=== PATIENT | male | born 1990 | race African-American/Black ===

== ENCOUNTER 2018-05-11 09:41 | Emergency (ER) | payer BC ==
--- NOTE | 2018-05-11 10:12 | ER Document Report ---
ED Medical Screen (RME) - General Chief Complaint: Flank Pain Stated Complaint: FLANK PAIN Time Seen by Provider: 05/11/18 09:58 Notes: 27 years old male with a history of foreign syndrome surgical correction of the aorta presents today with left flank pain. Apparently he lives in [place] and get treated in the room. I could not access his [place] database for substance abuse, information appeared to be wrong. TRAVEL OUTSIDE OF THE U.S. IN LAST 30 DAYS: No - Related Data Allergies/Adverse Reactions: No Known Allergies Allergy (Verified 05/11/18 09:49) Past Medical History Renal/ Medical History: Denies: Hx Peritoneal Dialysis Past Surgical History: Reports: Hx Cardiac Surgery - thoracic aortic aneurysm repair - Immunizations Hx Diphtheria, Pertussis, Tetanus Vaccination: Yes Physical Exam - Vital signs Vitals: Temp Pulse Resp BP Pulse Ox 98.7 F 68 20 107/73 97 05/11/18 09:53 05/11/18 09:53 05/11/18 09:53 05/11/18 09:53 05/11/18 09:53 Course - Vital Signs Vital signs: Temp Pulse Resp BP Pulse Ox 98.7 F 68 20 107/73 97 05/11/18 09:53 05/11/18 09:53 05/11/18 09:53 05/11/18 09:53 05/11/18 09:53 Doctor's Discharge - Discharge Referrals: VIPUL MASTERSON MD [Primary Care Provider] - Follow up as needed
[2018-05-11 11:06] LABS: ABSOLUTE MONOCYTES (AUTO) 0.4 10^3/uL (0.1-1.4); ABSOLUTE NEUT (AUTO) 1.2 10^3/uL (1.7-8.2); BASOPHILS % (AUTO) 1.1 % (0-2); EOSINOPHILS % (AUTO) 0.1 % (0-6); HEMATOCRIT 42.2 % (37.9-51.0); HEMOGLOBIN 14.1 g/dL (13.5-17.0); LYMPHOCYTES % (AUTO) 53.9 % (13-45); MEAN CORPUSCULAR HEMOGLOBIN 28.4 pg (27.0-33.4); MEAN CORPUSCULAR HGB CONC 33.4 g/dL (32.0-36.0); MEAN CORPUSCULAR VOLUME 85 fl (80-97); MONOCYTES % (AUTO) 11.4 % (3-13); PLATELET COUNT 138 10^3/uL (150-450); RED BLOOD COUNT 4.96 10^6/uL (4.35-5.55); RED CELL DISTRIBUTION WIDTH 14.4 % (11.5-14.0); SEGMENTED NEUTROPHILS % (AUTO) 33.5 % (42-78); TOTAL CELLS COUNTED % (AUTO) 100 %; WHITE BLOOD COUNT 3.6 10^3/uL (4.0-10.5)
--- NOTE | 2018-05-11 11:07 | RADIOLOGY REPORT (SQ) ---
EXAM DESCRIPTION: KUB/ABDOMEN (SINGLE VIEW) COMPLETED DATE/TIME: 05/11/2018 10:55 am REASON FOR STUDY: flank pain COMPARISON: Two-view chest 08/26/2013 NUMBER OF VIEWS: One view. TECHNIQUE: Supine radiographic image of the abdomen acquired. LIMITATIONS: None. FINDINGS: BOWEL GAS PATTERN: Normal bowel gas pattern. No dilated loops. Moderate stool in the rect osigmoid CALCIFICATIONS: No suspicious calcifications. SOFT TISSUES: No gross mass or suggestion of organomegaly. HARDWARE: Surgical clips in the left upper quadrant BONES: No acute fracture. No worrisome bone lesions. OTHER: No other significant finding. IMPRESSION: Moderate stool in the rectosigmoid. Otherwise unremarkable bowel gas pattern. TECHNICAL DOCUMENTATION: JOB ID: [id number] [employer]- All Rights Reserved Reading location - IP/workstation name: [email or web address]
[2018-05-11 11:11] LABS: APPEARANCE,URINE CLEAR; BILIRUBIN,URINE NEGATIVE (NEGATIVE); COLOR,URINE YELLOW; GLUCOSE, URINE NEGATIVE (NEGATIVE); KETONES,URINE NEGATIVE (NEGATIVE); LEUKOCYTE ESTERASE,URINE NEGATIVE (NEGATIVE); NITRITE,URINE NEGATIVE (NEGATIVE); PROTEIN,URINE NEGATIVE (NEGATIVE); URINE SPECIFIC GRAVITY 1.016
[2018-05-11 11:25] LABS: ALANINE AMINOTRANSFERASE 18 U/L (21-72); ALBUMIN 4.6 g/dL (3.5-5.0); ALKALINE PHOSPHATASE 69 U/L (38-126); ANION GAP 12 (5-19); ASPARTATE AMINO TRANSFERASE 32 U/L (17-59); BILIRUBIN,DIRECT 0.2 mg/dL (0.0-0.4); BILIRUBIN,TOTAL 0.6 mg/dL (0.2-1.3); BLOOD UREA NITROGEN 11 mg/dL (7-20); CALCIUM 9.3 mg/dL (8.4-10.2); CARBON DIOXIDE 30 mmol/L (22-30); CHLORIDE 102 mmol/L (98-107); GLUCOSE 102 mg/dL (75-110); POTASSIUM 4.3 mmol/L (3.6-5.0); TOTAL PROTEIN 8.4 g/dL (6.3-8.2)
[2018-05-11] MEDS ORDERED: KETOROLAC TROMETHAMINE INJ/PF 30 MG/1 ML SDV IV ONE (12:02)
[2018-05-11] MEDS ORDERED: ONDANSETRON HCL INJ/PF 4 MG/2 ML SDV IV ONE (12:03)
--- NOTE | 2018-05-11 12:13 | ER Document Report ---
ED General - General Chief Complaint: Flank Pain Stated Complaint: FLANK PAIN Time Seen by Provider: 05/11/18 09:58 Notes: Patient is a 27-year-old male presenting to the emergency department complaining of left flank pain for the last 3 days. Patient is also stating pain radiates around to his left lower quadrant and into his left groin. Patient denies dysuria, testicular pain or swelling. Patient does admit to vomiting, denies diarrhea. Patient denies any penile discharge. Patient denies any chest pain or shortness of breath. Past medical history: Marfan's, heart murmur Medications: Losartan, metoprolol Allergies: None Surgical history: Aortic aneurysm repair x3 Patient does admit to cigarette smoking, marijuana use, but denies EtOH use. TRAVEL OUTSIDE OF THE U.S. IN LAST 30 DAYS: No - Related Data Allergies/Adverse Reactions: No Known Allergies Allergy (Verified 05/11/18 09:49) Past Medical History - General Information source: Patient - Social History Smoking Status: Current Every Day Smoker Frequency of alcohol use: None Drug Abuse: Marijuana Lives with: Family Family History: Reviewed & Not Pertinent Patient has suicidal ideation: No Patient has homicidal ideation: No Renal/ Medical History: Denies: Hx Peritoneal Dialysis Past Surgical History: Reports: Hx Cardiac Surgery - thoracic aortic aneurysm repair - Immunizations Hx Diphtheria, Pertussis, Tetanus Vaccination: Yes Review of Systems - Review of Systems Constitutional: denies: Fever, Weakness EENT: No symptoms reported Cardiovascular: See HPI Respiratory: denies: Cough, Short of breath Gastrointestinal: See HPI Genitourinary: See HPI Male Genitourinary: No symptoms reported Musculoskeletal: See HPI Skin: No symptoms reported Hematologic/Lymphatic: No symptoms reported Neurological/Psychological: No symptoms reported Physical Exam - Vital signs Vitals: Temp Pulse Resp BP Pulse Ox 98.7 F 68 20 107/73 97 05/11/18 09:53 05/11/18 09:53 05/11/18 09:53 05/11/18 09:53 05/11/18 09:53 - Notes Notes: GENERAL: Alert, interacts well. No acute distress. HEAD: Normocephalic, atraumatic. EYES: Pupils equal, round, and reactive to light. Extraocular movements intact. ENT: Oral mucosa moist, tongue midline. NECK: Full range of motion. Supple. Trachea midline. LUNGS: Clear to auscultation bilaterally, no wheezes, rales, or rhonchi. No respiratory distress. HEART: Regular rate and rhythm. ABDOMEN: Soft, non-tender. Non-distended. Bowel sounds present in all 4 quadrants. EXTREMITIES: Moves all 4 extremities spontaneously. No edema, normal radial and dorsalis pedis pulses bilaterally. No cyanosis. BACK: no cervical, thoracic, lumbar midline tenderness. No saddle anesthesia, normal distal neurovascular exam. Left CVA tenderness, denied right CVA tenderness. Testicular exam reveals no erythema or swelling or tenderness upon palpation. Circumcised penis with no discharge at meatus. NEUROLOGICAL: Alert and oriented x3. Normal speech. cranial nerves II through XII grossly intact PSYCH: Normal affect, normal mood. SKIN: Warm, dry, normal turgor. No rashes or lesions noted. Course - Re-evaluation Re-evalutation: After pain medication administration in the emergency room patient states he is pain-free. CT scan reveals possible medullary nephrocalcinosis or potentially recent passing of stone. Discussed this at length with patient at bedside and need for follow-up with primary care provider. No signs of urinary tract infection, kidney function within normal limits. Will discharge home. - Vital Signs Vital signs: Temp Pulse Resp BP Pulse Ox 98.7 F 68 16 130/87 H 99 05/11/18 09:53 05/11/18 14:34 05/11/18 14:34 05/11/18 14:34 05/11/18 14:34 - Laboratory Result Diagrams: 05/11/18 10:40 05/11/18 10:40 Laboratory results interpreted by me: 05/11/18 05/11/18 05/11/18 10:40 10:40 10:40 WBC 3.6 L RDW 14.4 H Plt Count 138 L Seg Neutrophils % 33.5 L Lymphocytes % 53.9 H Absolute Neutrophils 1.2 L ALT 18 L Total Protein 8.4 H Urine Blood SMALL H Urine Urobilinogen 4.0 H Discharge - Discharge Clinical Impression: Left flank pain Condition: Stable Disposition: HOME, SELF-CARE Instructions: Kidney Stone ([facility]) Additional Instructions: As we discussed you most likely have passed a kidney stone. You may have residual pain for the next couple of days. But your CT results showed no signs of new stones at this time. Please stay well-hydrated and follow-up with your primary care provider. Please return to the emergency room for any other concerning symptoms. Referrals: VIPUL MASTERSON MD [Primary Care Provider] - Follow up as needed
--- NOTE | 2018-05-11 12:58 | RADIOLOGY REPORT (SQ) ---
EXAM DESCRIPTION: CT LTD RENAL STONE PROTOCOL ON COMPLETED DATE/TIME: 05/11/2018 12:35 pm REASON FOR STUDY: flank pain COMPARISON: None. TECHNIQUE: CT scan of the abdomen and pelvis performed without intravenous or oral contrast. Images reviewed with lung, soft tissue, and bone windows. Reconstructed coronal and sagittal MPR images revi ewed. All images stored on PACS. All CT scanners at this facility use dose modulation, iterative reconstruction, and/or weight based d osing when appropriate to reduce radiation dose to as low as reasonably achievable (ALARA). [facility]: Dose Right [facility]: CareDose [facility]: Dose Right [facility]: Teradose 4D [facility]: [employer] Technologies RADIATION DOSE: CT Rad equipment meets quality standard of care and radiation dose reduction techniq ues were employed. CTDIvol: 4.8 mGy. DLP: 248 mGy-cm.mGy. LIMITATIONS: Paucity of intra-abdominal fat. FINDINGS: LOWER CHEST: Cardiomegaly. NON-CONTRASTED LIVER, SPLEEN, ADRENALS: Evaluation limited by lack of IV contrast. No identified sign ificant masses. PANCREAS: No masses. No peripancreatic inflammatory changes. GALLBLADDER: No identified stones by CT criteria. No inflammatory changes to suggest cholecystitis. RIGHT KIDNEY AND URETER: No suspicious masses. Assessment limited by lack of IV contrast. No signif icant calcifications. No hydronephrosis or hydroureter. LEFT KIDNEY AND URETER: No suspicious masses. Assessment limited by lack of IV contrast. Mild nephr ocalcinosis. No definitive calculus. Prominent renal pelvis. No delaney hydronephrosis. AORTA AND RETROPERITONEUM: Vascular calcifications. Patient has Marfan's syndrome. BOWEL AND PERITONEAL CAVITY: No obvious masses or inflammatory changes. No free fluid. APPENDIX: Not visualized. PELVIS, BLADDER, AND ABDOMINAL WALL:No abnormal masses. No free fluid. Bladder normal. BONES: No acute findings. OTHER: No other significant finding. 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 Prominent left renal pelvis probably due t o recent stone passage. COMMENT: Quality ID # [id number]: Final reports with documentation of one or more dose reduction techniques (e.g., Automated exposure control, adjustment of the mA and/or kV according to patient size, use of iterative reconstruction technique) TECHNICAL DOCUMENTATION: JOB ID: [id number]- All Rights Reserved Reading location - IP/workstation name: [email or web address]
[2018-05-11 14:35] VITALS: BP 130/87
== END 2018-05-11 14:36 | disposition home or self-care (01) ==
LOC: ER 09:41
DX: R10.9 Unspecified abdominal pain (principal); F17.210 Nicotine dependence, cigarettes, uncomplicated
CPT/HCPCS: 99284; 96374; 96375; 36415; 85025; 80053; 81001; 74018; 76380; J1885; J2405

== ENCOUNTER 2019-12-04 17:58 | Emergency (ER) | payer OTHER ==
--- NOTE | 2019-12-04 18:56 | RADIOLOGY REPORT (SQ) ---
EXAM DESCRIPTION: CHEST SINGLE VIEW IMAGES COMPLETED DATE/TIME: 12/04/2019 6:43 pm REASON FOR STUDY: sob COMPARISON: 08/26/2013 EXAM PARAMETERS: NUMBER OF VIEWS: One view. TECHNIQUE: Single frontal radiographic view of the chest acquired. RADIATION DOSE: NA LIMITATIONS: None. FINDINGS: LUNGS AND PLEURA: No opacities, masses or pneumothorax. No pleural effusion. MEDIASTINUM AND HILAR STRUCTURES: No masses. Contour normal. HEART AND VASCULAR STRUCTURES: Cardiomegaly. No delaney pulmonary edema. BONES: Scoliosis. HARDWARE: Sternotomy wires. OTHER: No other significant finding. IMPRESSION: Cardiomegaly without pulmonary edema. Scoliosis. TECHNICAL DOCUMENTATION: JOB ID: [id number] 2010 [employer]- All Rights Reserved Reading location - IP/workstation name: [email or web address]
--- NOTE | 2019-12-04 19:06 | ER Document Report ---
ED Cardiac - General TRAVEL OUTSIDE OF THE U.S. IN LAST 30 DAYS: No <NICK SHAW - Last Filed: 12/04/19 21:19> <MELISSA TELLES - Last Filed: 12/04/19 22:00> - General Chief Complaint: Shortness Of Breath Stated Complaint: SHORTNESS OF BREATH Time Seen by Provider: 12/04/19 18:13 Primary Care Provider: [facility] [Provider Group] - Follow up as needed GISEL LUBIN MD [ACTIVE STAFF] - Follow up tomorrow VIPUL MASTERSON MD [Primary Care Provider] - Follow up as needed - Related Data Allergies/Adverse Reactions: No Known Allergies Allergy (Verified 05/11/18 09:49) Past Medical History - Social History Smoking Status: Current Every Day Smoker Chew tobacco use (# tins/day): No Frequency of alcohol use: Occasional Drug Abuse: None Family History: Reviewed & Not Pertinent Patient has homicidal ideation: No Pulmonary Medical History: Reports: Hx Pneumonia Renal/ Medical History: Denies: Hx Peritoneal Dialysis Past Surgical History: Reports: Hx Cardiac Surgery - thoracic aortic aneurysm repair - Immunizations Hx Diphtheria, Pertussis, Tetanus Vaccination: Yes <NICK SHAW - Last Filed: 12/04/19 21:19> Physical Exam - General General appearance: Appears well, Alert - HEENT Head: Normocephalic, Atraumatic Eyes: Normal Conjunctiva: Normal Nasal: Normal Mouth/Lips: Normal Mucous membranes: Normal Neck: Normal, Supple. No: Lymphadenopathy - Respiratory Respiratory status: No respiratory distress Chest status: Nontender Breath sounds: Other - Heart murmur able to be auscultated on posterior thorax, breath sounds otherwise clear. No: Rales, Rhonchi, Stridor, Wheezing Chest palpation: Normal - Cardiovascular Rhythm: Regular Heart sounds: S1 appreciated, S2 appreciated Murmur: Yes - Abdominal Inspection: Other - Visible pulsation to the area overlying apex of the heart Distension: No distension Bowel sounds: Normal Tenderness: Nontender Organomegaly: No organomegaly - Back Back: Normal, Nontender - Extremities General upper extremity: Normal inspection, Normal ROM General lower extremity: Edema - Trace edema to bilateral ankles, Normal ROM - Neurological Neuro grossly intact: Yes Cognition: Normal Le[place] Coma Scale Eye Opening: Spontaneous [place] Coma Scale Verbal: Oriented [place] Coma Scale Motor: Obeys Commands Leodan Coma Scale Total: 15 - Psychological Associated symptoms: Normal affect, Normal mood - Skin Skin Temperature: Warm Skin Moisture: Dry Skin Color: Normal <VALERIAANURAGPARMINDERMARLA - Last Filed: 12/04/19 21:19> - Vital signs Vitals: Temp 98.7 F 12/04/19 18:06 Course - Laboratory Result Diagrams: 12/04/19 19:17 12/04/19 19:17 - Diagnostic Test Radiology reviewed: Image reviewed, Reports reviewed <VALERIA,NICK - Last Filed: 12/04/19 21:19> - Laboratory Result Diagrams: 12/04/19 19:17 12/04/19 19:17 <TOMASZMELISSA Lala - Last Filed: 12/04/19 22:00> - Re-evaluation Re-evalutation: 12/04/19 20:[address] Telles regarding patient presentation, recommends consultation with [employer] professor regarding patient presentation. 12/04/19 20:[address] Lubin regarding patient presentation. Dr. Lubin reviewed patient's EKG feels that it looks to have LVH with possible normal repolarization variant, normal rhythm, no acute ischemic changes. Patient's chest x-ray reviewed as well per Dr. Lubin. 12/04/19 21:05 Dr. Telles to bedside for cardiac bedside ultrasound, no cardiac effusion noted, patient does have thickened heart muscle consistent with EKG findings of left ventricular hypertrophy. Recommends having patient restart his medications. Advises having patient start versus metoprolol and to monitor his blood pres sure. Patient was advised that if his blood pressure is stable that he can restart his losartan as well but if his blood pressure drops that he should only take the metoprolol. Patient encouraged to follow-up with cardiology for outpatient echocardiogram. 12/04/19 21:10 Patient without any chest pain symptoms at this time. Patient with orthopnea for 3 days although has been off of his usual medications. Presentation of patient with orthopnea in an otherwise well appearing patient. Low clinical suspicion for ACS given clinical history, exam, EKG without acute ischemic changes, and negative initial troponin. HEART score less than or equal to 3. PE also seems unlikely given clinical history. Patient is PERC criteria negative. CXR without evidence of pneumothorax or pneumonia, although is enlarged on x- ray. (NICK SHAW) 12/04/19 21:56 The patient was seen and evaluated by me with the midlevel provider. Patient has a history of Marfans Syndrome and he has had cardiac surgeries in the past but he has been lost to follow up. Patient is here for shortness of breath and his chest xray shows worsening cardiomegaly. Patient was told he needs urgent outpatient cardiology follow up. Dr. Lubin was consulted and is happy to see the patient as an outpatient. Patient is not having ACS or acute heart failure so no need to admit today. Bedside ultrasound by me showed no pericardial effusion. Plan to start patient on blood pressure medication and have him follow up with Cardiology RENE. (TELLES,[facility]) - Vital Signs Vital signs: Temp Pulse Resp BP Pulse Ox 98.7 F 76 135/56 H 98 12/04/19 18:10 12/04/19 18:10 12/04/19 18:10 12/04/19 19:02 - Laboratory Laboratory results interpreted by me: 12/04/19 12/04/19 12/04/19 19:01 19:17 19:17 RBC 4.15 L Hgb 11.6 L Hct 34.9 L RDW 15.0 H Lymph % (Auto) 52.4 H Seg Neutrophils % 35.9 L Carbon Dioxide 31 H Glucose 66 L NT-Pro-B Natriuret Pep Urine Blood SMALL H Ur Leukocyte Esterase TRACE H 12/04/19 19:17 RBC Hgb Hct RDW Lymph % (Auto) Seg Neutrophils % Carbon Dioxide Glucose NT-Pro-B Natriuret Pep 2290 H Urine Blood Ur Leukocyte Esterase Labs- All tests 24 hr 12/04/19 12/04/19 12/04/19 19:01 19:17 19:17 WBC 5.5 RBC 4.15 L Hgb 11.6 L Hct 34.9 L MCV 84 MCH 27.9 MCHC 33.2 RDW 15.0 H Plt Count 171 Lymph % (Auto) 52.4 H Cecil % (Auto) 7.1 Eos % (Auto) 3.8 Baso % (Auto) 0.8 Absolute Neuts (auto) 2.0 Absolute Lymphs (auto) 2.9 Absolute Monos (auto) 0.4 Absolute Eos (auto) 0.2 Absolute Basos (auto) 0.0 Seg Neutrophils % 35.9 L Sodium 139.5 Potassium 3.9 Chloride 103 Carbon Dioxide 31 H Anion Gap 6 BUN 19 Creatinine 1.05 Est GFR ( Amer) > 60 Est GFR (MDRD) Non-Af > 60 Glucose 66 L Calcium 9.1 Magnesium 2.1 Total Bilirubin 0.6 Direct Bilirubin 0.0 Neonat Total Bilirubin Not Reportable Neonat Direct Bilirubin Not Reportable Neonat Indirect Bili Not Reportable AST 31 ALT 20 Alkaline Phosphatase 56 Troponin I NT-Pro-B Natriuret Pep Total Protein 6.8 Albumin 3.6 Urine Color STRAW Urine Appearance CLEAR Urine pH 6.0 Ur Specific [place] 1.002 Urine Protein NEGATIVE Urine Glucose (UA) NEGATIVE Urine Ketones NEGATIVE Urine Blood SMALL H Urine Nitrite NEGATIVE Urine Bilirubin NEGATIVE Urine Urobilinogen NEGATIVE Ur Leukocyte Esterase TRACE H Ur Squamous Epith Cells MODERATE Urine Ascorbic Acid NEGATIVE 12/04/19 19:17 WBC RBC Hgb Hct MCV MCH MCHC RDW Plt Count Lymph % (Auto) Cecil % (Auto) Eos % (Auto) Baso % (Auto) Absolute Neuts (auto) Absolute Lymphs (auto) Absolute Monos (auto) Absolute Eos (auto) Absolute Basos (auto) Seg Neutrophils % Sodium Potassium Chloride Carbon Dioxide Anion Gap BUN Creatinine Est GFR ( Amer) Est GFR (MDRD) Non-Af Glucose Calcium Magnesium Total Bilirubin Direct Bilirubin Neonat Total Bilirubin Neonat Direct Bilirubin Neonat Indirect Bili AST ALT Alkaline Phosphatase Troponin I 0.032 NT-Pro-B Natriuret Pep 2290 H Total Protein Albumin Urine Color Urine Appearance Urine pH Ur Specific [place] Urine Protein Urine Glucose (UA) Urine Ketones Urine Blood Urine Nitrite Urine Bilirubin Urine Urobilinogen Ur Leukocyte Esterase Ur Squamous Epith Cells Urine Ascorbic Acid (NICK SHAW) Discharge <NICK SHAW - Last Filed: 12/04/19 21:19> <MELISSA TELLES - Last Filed: 12/04/19 22:00> - Discharge Clinical Impression: Shortness of breath, Cardiomegaly Condition: Stable Disposition: HOME, SELF-CARE Instructions: Dyspnea, Nonspecific ([facility]) Additional Instructions: Return immediately for any new or worsening symptoms: Chest pain, worsening shortness of breath, lightheadedness, dizziness, any concerning new symptoms Followup with your primary care provider, call tomorrow to make a followup appointment Follow-up with cardiology for further evaluation, call tomorrow to make a follow-up appointment. You will need an outpatient echocardiogram to further evaluate your symptoms. Restart your metoprolol daily, monitor your blood pressure daily. If your blood pressure is stable and is not low you can resume the losartan as well. If your blood pressure is lower than 140/90, do not take the losartan. Prescriptions: Losartan Potassium 50 mg PO DAILY #30 tablet Metoprolol Succinate [Toprol Xl 50 mg Tab.sr] 50 mg PO DAILY #30 tab.sr.24h Referrals: VIPUL MASTERSON MD [Primary Care Provider] - Follow up as needed GISEL LUBIN MD [ACTIVE STAFF] - Follow up tomorrow [facility] [Provider Group] - Follow up as needed
[2019-12-04 19:25] LABS: APPEARANCE,URINE CLEAR; BILIRUBIN,URINE NEGATIVE (NEGATIVE); COLOR,URINE STRAW; GLUCOSE, URINE NEGATIVE (NEGATIVE); KETONES,URINE NEGATIVE (NEGATIVE); LEUKOCYTE ESTERASE,URINE TRACE (NEGATIVE); NITRITE,URINE NEGATIVE (NEGATIVE); PROTEIN,URINE NEGATIVE (NEGATIVE); URINE SPECIFIC GRAVITY 1.002; UROBILINOGEN,URINE NEGATIVE mg/dL (<2.0)
[2019-12-04 19:27] LABS: ADD MANUAL MICROSCOPIC YES
[2019-12-04 19:32] LABS: ABSOLUTE EOSINOPHILS # (AUTO) 0.2 10^3/uL (0.0-0.6); ABSOLUTE LYMPHOCYTES (AUTO) 2.9 10^3/uL (0.5-4.7); ABSOLUTE MONOCYTES (AUTO) 0.4 10^3/uL (0.1-1.4); BASOPHILS % (AUTO) 0.8 % (0-2); EOSINOPHILS % (AUTO) 3.8 % (0-6); HEMATOCRIT 34.9 % (37.9-51.0); HEMOGLOBIN 11.6 g/dL (13.5-17.0); LYMPHOCYTES % (AUTO) 52.4 % (13-45); MEAN CORPUSCULAR HEMOGLOBIN 27.9 pg (27.0-33.4); MEAN CORPUSCULAR HGB CONC 33.2 g/dL (32.0-36.0); MEAN CORPUSCULAR VOLUME 84 fl (80-97); MONOCYTES % (AUTO) 7.1 % (3-13); PLATELET COUNT 171 10^3/uL (150-450); RED BLOOD COUNT 4.15 10^6/uL (4.35-5.55); SEGMENTED NEUTROPHILS % (AUTO) 35.9 % (42-78); TOTAL CELLS COUNTED % (AUTO) 100 %; WHITE BLOOD COUNT 5.5 10^3/uL (4.0-10.5)
[2019-12-04 20:05] LABS: ALBUMIN 3.6 g/dL (3.5-5.0); ALKALINE PHOSPHATASE 56 U/L (38-126); ANION GAP 6 (5-19); ASPARTATE AMINO TRANSFERASE 31 U/L (17-59); BILIRUBIN,TOTAL 0.6 mg/dL (0.2-1.3); BLOOD UREA NITROGEN 19 mg/dL (7-20); CALCIUM 9.1 mg/dL (8.4-10.2); CARBON DIOXIDE 31 mmol/L (22-30); CHLORIDE 103 mmol/L (98-107); POTASSIUM 3.9 mmol/L (3.6-5.0); TOTAL PROTEIN 6.8 g/dL (6.3-8.2)
[2019-12-04 20:08] LABS: GLUCOSE 66 mg/dL (75-110)
[2019-12-04 20:17] LABS: TROPONIN I 0.032 ng/mL
--- NOTE | 2019-12-04 20:34 | EKG REPORT ---
SEVERITY:- ABNORMAL ECG - SINUS RHYTHM ATRIAL PREMATURE COMPLEX LEFT ATRIAL ABNORMALITY NONSPECIFIC INTRAVENTRICULAR CONDUCTION DELAY LEFT VENTRICULAR HYPERTROPHY : Confirmed by: Maribel Barker MD 04-Dec-2019 20:33:55
[2019-12-04] MEDS ORDERED: METOPROLOL SUCCINATE 50 MG TAB.SR.24H PO ONE (21:01)
[2019-12-04] MEDS ORDERED: ACETAMINOPHEN 325 MG TABLET PO ONE (21:14)
[2019-12-04] MEDS ORDERED: NICOTINE 21 MG/24 HR PATCH.TD24 TD ONE (21:14)
[2019-12-04 22:00] VITALS: BP 156/64
== END 2019-12-04 22:01 | disposition home or self-care (01) ==
LOC: ER 17:58
DX: R06.02 Shortness of breath (principal); I51.7 Cardiomegaly; Q87.418 Marfan syndrome with other cardiovascular manifestations; R06.01 Orthopnea; F17.200 Nicotine dependence, unspecified, uncomplicated; Z79.899 Other long term (current) drug therapy
CPT/HCPCS: 36415; 71045; 80053; 81001; 83735; 83880; 84484; 85025; 93005; 93010; 99285

== ENCOUNTER → 2020-01-07 | Outpatient (CLI) | payer OTHER ==
--- NOTE | 2020-01-07 15:58 | XCELERA REPORT ---
[address] [address] Transthoracic Echocardiogram Report Name: RIMA HOLLINS Age: 29 yrs Gender: Male : 1990 Patient Status: Outpatient Patient Location: Study Date: 01/07/2020 02:18 PM Height: 73 in Weight: 155 lb BSA: 1.9 m2 Procedure: A complete two-dimensional transthoracic echocardiogram was performed (2D, M-mode, spectral and color flow Doppler). The study was technically adequate with some images being suboptimal in quality. Reason For Study: MARFANS Previous Evaluation: No previous studies were available. History: Vascular surgeries/interventions: Aortic root repair. Marfan's syndrome PDA repair. Ordering Physician: DORON TOLBERT Performed By: Zuleima Angel Interpretation Summary Left ventricular systolic function is moderate to severely reduced. The Ejection Fraction estimate is 25-30% The right ventricular systolic function is normal. There is a moderate amount of mitral regurgitation There is no aortic valve stenosis There is a mild to moderate amount of aortic regurgitation There is no pericardial effusion. MMode/2D Measurements & Calculations RVDd: 3.8 cm LVIDd: 6.7 cm FS: 20.1 % Ao root diam: 3.1 cm IVSd: 0.95 cm LVIDs: 5.4 cm EDV(Teich): Ao root area: LVPWd: 0.99 cm 234.4 ml 7.7 cm2 ESV(Teich): LA dimension: 5.2 cm 140.4 ml EF(Teich): 40.1 % LVOT diam: 3.3 cmLVLd ap4: 9.5 cm SV(MOD-sp4): LVOT area: EDV(MOD-sp4): 91.0 ml 293.0 ml 8.5 cm2 LVLs ap4: 8.9 cm ESV(MOD-sp4): 202.0 ml EF(MOD-sp4): 31.1 % Doppler Measurements & Calculations MV E max popeye: MV P1/2t max popeye: Ao V2 max: AI max popeye: 76.0 cm/sec 77.9 cm/sec 92.3 cm/sec 506.2 cm/sec MV A max popeye: MV P1/2t: 66.3 msec Ao max PG: AI max P.7 cm/sec MVA(P1/2t): 3.3 cm2 3.4 mmHg 102.5 mmHg MV E/A: 1.7 MV dec slope: DIOMEDES(V,D): 4.5 cm2 AI dec slope: 344.0 cm/sec2 430.8 cm/sec2 MV dec time: AI P1/2t: 0.22 sec 344.1 msec LV V1 max PG: PA V2 max: PI end-d popeye: TR max popeye: 0.96 mmHg 57.8 cm/sec 134.4 cm/sec 252.5 cm/sec LV V1 max: PA max P.3 mmHg TR max P.0 cm/sec 25.5 mmHg AV P1/2t-pr_phl: MV P1/2t-pr_phl: 344.1 msec 66.3 msec Left Ventricle The left ventricle is moderately dilated. There is mild concentric left ventricular hypertrophy. Left ventricular systolic function is moderate to severely reduced. The Ejection Fraction estimate is 25-30%. Doppler measurements suggest pseudonormalized left ventricular relaxation, which is associated with grade II/IV or mild to moderate diastolic dysfunction. There is moderate to severe global hypokinesis of the left ventricle. Right Ventricle The right ventricle is mildly dilated. The right ventricular systolic function is normal. Atria The right atrium is mildly dilated. The left atrium is moderately dilated. Mitral Valve The posterior mitral leaflet is thickened and fixed consistent with prior mitral repair surgery. There is no mitral valve stenosis. There is a moderate amount of mitral regurgitation. Aortic Valve The aortic valve is trileaflet. The aortic valve opens well. There is no aortic valve stenosis. There is a mild to moderate amount of aortic regurgitation. Tricuspid Valve The tricuspid valve is normal in structure and function. There is a trace amount of tricuspid regurgitation. Tricuspid regurgitation jet envelope not well defined to measure RV systolic pressure accurately. Pulmonic Valve The pulmonic valve is not well seen, but is grossly normal. There is a mild amount of pulmonic regurgitation. Great Vessels The aortic root is normal size. Post surgical changes with increased echogenecity. The inferior vena cava appeared small and collapsed with respiration (RAP 0-5 mmHg). Effusions There is no pericardial effusion. : DORON TOLBERT Anil
== END ==
LOC: SP 13:45
PROVIDERS: ATTEND Internal Medicine
DX: Q87.40 Marfan syndrome, unspecified (principal); I34.0 Nonrheumatic mitral (valve) insufficiency; Z95.2 Presence of prosthetic heart valve
CPT/HCPCS: 93306